=== PATIENT | male | born 2000 | race Caucasian/White ===

== ENCOUNTER 2023-12-09 21:14 | Emergency (ER) | payer OTHER, SELFPAY ==
[2023-12-09 21:33] VITALS: BP 135/81; PULSE 69; RESP 16; TEMP 36.8; O2SAT 98; BMI 25.8
[2023-12-09] MEDS: KETOROLAC 15 MG/ML inj IVP (22:34)
[2023-12-09 22:43] VITALS: PULSE 88; O2SAT 97
[2023-12-09 22:43] LABS: Basophils Absolute Auto 0.03 K/uL (0.00-0.30); Basophils Percent Auto 0.4 % (0.0-3.0); Eosinophils Absolute Auto 0.12 K/uL (0.00-0.50); Eosinophils Percent Auto 1.7 % (0.0-7.0); Hemoglobin* 14.8 gm/dL (13.5-17.5); Immature Granulocytes Abs Auto 0.03 K/uL (0.00-0.30); Immature Granulocytes Pct Auto 0.4 %; Lymphocytes Absolute Auto 2.43 K/uL (0.90-2.90); Lymphocytes Percent Auto 33.8 % (20-44); Mean Corpuscular HGB Conc 34 gm/dL (32-36); Mean Corpuscular Hemoglobin 30 pg (26-34); Mean Corpuscular Volume 88 fL (80-100); Monocytes Percent Auto 7.1 % (0.0-11.0); Neutrophils Absolute Auto 4.07 K/uL (1.7-7.0); Neutrophils Percent Auto 56.6 % (42.0-72.0); Platelet Count* 287 K/uL (140-440); RDW Coefficient of Variation % 12.2 % (11.5-15.5); Red Blood Count 4.87 m/uL (4.30-5.90); White Blood Count* 7.19 K/uL (4.50-11.00)
--- NOTE | 2023-12-09 22:44 | ED.ABDPAIN ---
HPI - Abdominal Pain General Date Seen: 12/09/23 Chief Complaint: Abdominal Pain Stated Complaint: Abdominal pain Time Seen by Provider: 12/09/23 22:07 Source: patient Mode of arrival: ambulatory Limitations: no limitations History of Present Illness HPI narrative: Patient is a 23-year-old male presenting to the emergency department for left upper quadrant abdominal pain. States pain started yesterday when he got to work around noon. He works as a auto suspension and steering mechanic. Cannot think of any specific injuries to the area. States the pain is only there when he moves around her stands up. Does not have any pain when he is at rest. Denies nausea, chest pain, shortness of breath, fevers, chills, headache, vision changes, diarrhea, constipation, dysuria. Denies ever having symptoms like this before. No previous abdominal surgeries. States the pain is a dull ache but again is only there when he moves but did may be slightly radiating across his upper abdomen but not very much he states. Denies any back pain at this time. No other concerns noted. Related Data Home Medications ?Medication ?Instructions ?Recorded ?Confirmed No Known Home Medications 12/09/23 12/09/23 Allergies Allergy/AdvReac Type Severity Reaction Status Date / Time No Known Drug Allergies Allergy Verified 12/09/23 21:36 Review of Systems Status of ROS Reports: 10 or more systems reviewed and unremarkable except as noted in History and below [facility] Social History Smoking Status: Unknown if ever smoked Exam Narrative: Exam Narrative: Const: Well-nourished, Well-developed, in no distress Eyes: PERRL, no conjunctival injection, and symmetrical lids HENT: Atraumatic external nose and ears. Moist mucous membranes. Neck: Symmetric, trachea midline, No thyromegaly. CVS: RRR, No murmurs or gallops. Peripheral pulses 2+ and equal in all extremities RESP: Unlabored respiratory effort. Clear to auscultation bilaterally. GI: Nontender/Nondistended, No rebound or guarding. MSK:Extremities w/o deformity, Normal Active ROM Skin: Warm, Dry. No rashes or lesions. Neuro: Normal Muscle tone, No focal neurological deficits. Psych: Awake, Alert, & Oriented x3. Appropriate mood and affect. Const: Vital Signs, click to edit/add: Vital Signs - 24 hr 12/09/23 21:33 12/09/23 22:43 12/09/23 22:45 Temperature 98.3 F Pulse Rate 88 89 Pulse Rate [Pulse Oximeter] 69 Respiratory Rate 16 Blood Pressure [Ri ght Upper Arm] 135/81 Pulse Oximetry 98 97 97 Oxygen Delivery Me thod Room Air Room Air Course Vital Signs Vital signs: Initial Vital Signs Temperature 98.3 F 12/09/23 21:33 Temperature Source Temporal Artery Scan 12/09/23 21:33 Pulse Rate 69 12/09/23 21:33 Respiratory Rate 16 12/09/23 21:33 Blood Pressure 135/81 12/09/23 21:33 Blood Pressure Mean 99 12/09/23 21:33 Blood Pressure Position Sitting 12/09/23 21:33 Pulse Oximetry 98 12/09/23 21:33 Oxygen Delivery Method Room Air 12/09/23 21:33 Vital Signs Temperature 98.3 F 12/09/23 21:33 Pulse Rate 69 12/09/23 21:33 Respiratory Rate 16 12/09/23 21:33 Blood Pressure 135/81 12/09/23 21:33 Pulse Oximetry 98 12/09/23 21:33 Oxygen Delivery Method Room Air 12/09/23 21:33 Temperature 98.3 F 12/09/23 21:33 Pulse Rate 89 12/09/23 22:45 Respiratory Rate 16 12/09/23 21:33 Blood Pressure 135/81 12/09/23 21:33 Pulse Oximetry 97 12/09/23 22:45 Oxygen Delivery Method Room Air 12/09/23 22:43 Medications Administered Medications: Discontinued Medications Generic Name Dose Route Start Last Admin Trade Name Freq PRN Reason Stop Dose Admin Ketorolac Tromethamine 15 mg 12/09/23 22:19 12/09/23 22:34 Ketorolac 15 Mg/Ml Inj IVP 12/09/23 22:20 15 mg ONCE ONE Administration MDM - Abdominal Pain MDM Narrative Medical decision making narrative: Patient is a 23-year-old male presenting for left upper quadrant abdominal pain. This pain seems most likely musculoskeletal in nature. I will do CBC, CMP, lipase look for signs of intra-abdominal issues. I believe the CT scan this tender be unnecessary radiation for patient of his age. Will give Toradol for pain. Seems very unlikely to be a small-bowel obstruction concerning no previous abdominal surgery. Unlikely to be any splenic infarcts considering he has no risk factors. Lipase which check for signs of pancreatitis but this also seems unlikely. Lab work returned showing no concerning abnormalities. Pain is better with the Toradol. Overall is looking well and has stable vital signs. Again this seems most likely to be a musculoskeletal strain considering his work so I will discharge him at this time. He is agreeable to this plan. Lab Data Labs: Lab Results 12/09/23 Range/Units 22:30 WBC 7.19 (4.50-11.00) K/uL RBC 4.87 (4.30-5.90) m/uL Hgb 14.8 (13.5-17.5) gm/dL Hct 43.0 (37.0-53.0) % MCV 88 (80-100) fL MCH 30 (26-34) pg MCHC 34 (32-36) gm/dL RDW Coeff of Demetri 12.2 (11.5-15.5) % Plt Count 287 (140-440) K/uL Neut % (Auto) 56.6 (42.0-72.0) % Lymph % (Auto) 33.8 (20-44) % [place] % (Auto) 7.1 (0.0-11.0) % Eos % (Auto) 1.7 (0.0-7.0) % Baso % (Auto) 0.4 (0.0-3.0) % Neut # (Auto) 4.07 (1.7-7.0) K/uL Lymph # (Auto) 2.43 (0.90-2.90) K/uL [place] # (Auto) 0.50 (0.00-0.90) K/UL Eos # (Auto) 0.12 (0.00-0.50) K/uL Baso # (Auto) 0.03 (0.00-0.30) K/uL Abs Immat Gran (auto) 0.03 (0.00-0.30) K/uL Imm/Tot Granulo (auto) 0.4 % Sodium 140 (135-149) mmol/L Potassium 3.7 (3.6-5.1) mmol/L Chloride 104 (96-114) mmol/L Carbon Dioxide 27 (20-32) mmol/L Anion Gap 9 (7-15) mEq/L BUN 9 (5-24) mg/dL Creatinine 1.0 (0.5-1.5) mg/dL Estimated Creat Clear 116.60 Estimated GFR 107 ml/min Glucose 109 (60-115) mg/dL Calcium 9.5 (8.4-10.6) mg/dL Total Bilirubin 0.5 (0.1-1.5) mg/dL AST 37 H (12-35) U/L ALT 28 (4-50) U/L Alkaline Phosphatase 60 (40-150) U/L Total Protein 7.6 (6.0-8.3) g/dL Albumin 4.8 (3.3-5.0) g/dL Lipase 76 (23-300) U/L Discharge Plan Discharge Clinical Impression: Abdominal muscle strain Qualifiers: Encounter type: initial encounter Qualified Code(s): S39.011A - Strain of muscle, fascia and tendon of abdomen, initial encounter Patient Disposition: Home, Self-Care Condition: Stable Instructions: Muscle Strain (DC), Abdominal Pain (ED) Additional Instructions: Take Tylenol and ibuprofen for pain. Return to the emergency department via worsening symptoms Prescriptions: No Action No Known Home Medications Follow Up/Referrals: Provider,Not a Local [Primary Care Provider] - Stand Alone Forms: [employer] [facility] Info Instructions
[2023-12-09 22:45] VITALS: PULSE 89; O2SAT 97
[2023-12-09 22:53] LABS: Slide Review Reflex No
[2023-12-09 22:58] LABS: Albumin* 4.8 g/dL (3.3-5.0); Chloride* 104 mmol/L (96-114)
[2023-12-09 22:59] LABS: Potassium* 3.7 mmol/L (3.6-5.1); Sodium* 140 mmol/L (135-149)
[2023-12-09 23:01] LABS: Alkaline Phosphatase* 60 U/L (40-150); Anion Gap 9 mEq/L (7-15); Aspartate Amino Transferase* 37 U/L (12-35); Bilirubin Total* 0.5 mg/dL (0.1-1.5); Blood Urea Nitrogen* 9 mg/dL (5-24); Carbon Dioxide* 27 mmol/L (20-32); Estimated Glomerular Filt Rate 107 ml/min; Glucose* 109 mg/dL (60-115); Total Protein* 7.6 g/dL (6.0-8.3)
[2023-12-09 23:02] LABS: Alanine Aminotransferase* 28 U/L (4-50); Calcium* 9.5 mg/dL (8.4-10.6); Lipase* 76 U/L (23-300)
== END 2023-12-09 23:27 | disposition home or self-care (01) ==
PROVIDERS: Emergency Provider Student in an Organized Health Care Education/Training Program
DX: S39.011A Strain of muscle, fascia and tendon of abdomen, initial encounter (principal)
CPT/HCPCS: 36415; 80053; 83690; 85025; 96374; 99283; 99284; J1885